=== PATIENT | female | born 1955 | race Caucasian/White ===

== ENCOUNTER → 2023-04-07 13:27 | Outpatient (CLI) | payer MEDICARE, SELFPAY ==
--- NOTE | 2023-04-07 13:28 | MR_ITS ---
FINAL REPORT CLINICAL HISTORY: Lower back pain 13 ml prohance given FINDINGS: Multiplanar MR imaging of the lumbar spine was performed without and with contrast. On the sagittal T2-weighted images, disc degeneration is seen at multiple levels. There are mild endplate changes at multiple levels. The vertebral alignment is normal. There is no evidence of fracture. The conus has an unremarkable appearance. L1-2: An annular bulge is present. No significant canal stenosis or neuroforaminal narrowing is seen. L2-3: An annular bulge is present. No significant canal stenosis or neuroforaminal narrowing is seen. L3-4: There is an annular bulge, facet arthropathy and vertebral osteophytes. There is a small right foraminal disc protrusion. There is mild right neural foraminal narrowing. L4-5: An annular bulge is present. There is mild right neural foraminal narrowing. L5-S1: There is an annular bulge, facet arthropathy and vertebral osteophytes. There is a small left foraminal disc protrusion. No significant canal stenosis or neuroforaminal narrowing is seen. No abnormal contrast enhancement is identified. There are numerous cysts throughout both kidneys consistent with polycystic kidney disease. IMPRESSION: Disc protrusions at L3-L4 and L5-S1 without significant canal stenosis. Multilevel degenerative disc disease with areas of neural foraminal narrowing. No abnormal contrast-enhancement. Reviewed, Interpreted and Dictated by Juan Blancas III, MD Transcribed by Sabas Salazar Authenticated and . [facility]
[2023-04-07 13:57] LABS: Blood Urea Nitrogen 21 mg/dl (7-17); Estimated Glomerular Filt Rate 56 ml/min (>60); GFR (African American) 67 ML/MIN (>60)
== END ==
LOC: RAD 13:28
PROVIDERS: PCP Nurse Practitioner Family; Visit Provider Nurse Practitioner
DX: M54.50 Low back pain, unspecified (principal)
CPT/HCPCS: 36415; 72158; 76376; 82565; 84520; A9576